=== PATIENT | female | born 1990 | race Caucasian/White ===

== ENCOUNTER 2021-01-31 20:38 | Emergency (ER) | payer OTHER ==
[~2021-01-31] VITALS: Ht 160 cm; Wt 65.8 kg
[2021-01-31] MEDS ORDERED: ADVIL (21:01)
== END 2021-01-31 21:37 ==
LOC: ER 20:38
DX: R51.9 Headache, unspecified (principal); Z20.822 Contact with and (suspected) exposure to COVID-19